=== PATIENT | female | born 1945 | race Caucasian/White ===

== ENCOUNTER 2019-11-25 05:13 | Inpatient (IN) ==
[2019-11-25] MEDS ORDERED: KETOROLAC 30 MG/ML VIAL IV ONE (05:46)
--- NOTE | 2019-11-25 05:54 | Emergency Department Note ---
Impression & Plan Atypical chest pain, Mass of right lung, Infiltrate of left lung present on chest x-ray ED Provider Note NAME: NADEEM BROWNING AGE: 74 SEX: F ARRIVES VIA: Walk-In INFORMANT: Patient ED PROVIDER(S): Isabel Cross DO CHIEF COMPLAINT: Right-sided chest pain PLAN: Disposition: Admitted to the [facility] service Condition: Good MEDICAL DECISION MAKING: This is a 74-year-old female patient presents emergency department with a right- sided chest pain on 2 different occasions that woke her from sleep. The patient had a normal EKG and negative troponin. She had a normal-appearing chest x-ray but had a CT scan of the chest with a right-sided pleural-based mass and a significant left-sided infiltrative process. The patient has a remote history of tobacco abuse and a very slight cough but no other significant risk factors for COVID 19. [facility] for [facility]. Triage Nursing notes reviewed and agree them. Prior medical records reviewed Vital Signs: reviewed and were unremarkable Differential diagnosis: Malignancy of the lung, pulmonary embolism, COVID-19, pneumonia, cardiac ischemia, pleurisy, costochondritis, GERD, DC, pneumothorax ER treatment provided: IV Toradol IV Benadryl IV Solu-Medrol IV Zofran Diagnostics interpreted by me: ECG: Normal sinus rhythm at a rate of 83 with PACs. There is no obvious ischemia or ST segment elevation. Cardiac Monitoring: Normal sinus rhythm Laboratory studies: See below Imaging studies: XR chest 1V portable-as per radiology HISTORY: 74 years-old Female Chest Pain acute atypical chest pain COMPARISON: Chest and rib radiographs 11/21/2017 TECHNIQUE: Portable AP view of the chest FINDINGS: Suggested emphysema. Chronic interstitial coarsening compatible with fibrosis. No pneumothorax, pleural effusion or overt pulmonary edema. Unchanged left basilar opacity suggestive of scarring. No lobar airspace consolidation typical for pneumonia. Bones appear grossly intact. Mild convex left curvature of the midthoracic spine. IMPRESSION: No acute process. CT scan of the chest-as per radiology FINDINGS: The thoracic aorta shows mild arthritic change. No evidence for aneurysm or dissection. The pulmonary vasculature enhances appropriately. There are no filling defects. There is a pleural-based mass versus focus of consolidation peripheral aspect right upper lobe. This is best seen transaxial image 67. Measurements are 2.5 x 1.8 cm. Lungs otherwise show patchy parenchymal infiltrates involving the lingula, as well as posterior aspect of the right lower lobe There is underlying emphysematous change. There is pleural thickening over the apical regions bilaterally. There are several calcified as well as noncalcified mediastinal and/or hilar nodes. IMPRESSION: 1. No evidence for pulmonary embolus. 2. Moderate emphysematous change. 3. Patchy parenchymal infiltrates involving the lingula, left upper lobe, and to a lesser extent superior segment right upper lobe. 4. Pleural base mass versus focus of consolidative infiltrative change peripheral aspect right upper lobe. 5. This measures 2.5 x 1.8 cm. 6. Diagnostic considerations must include neoplasm versus a consolidative infiltrative process HPI: 74/F arrives for evaluation of right-sided chest pain. This is a 74-year-old female patient who describes waking at 4 AM with fairly significant right-sided chest pain. The pain has since lessened but is still present. She also noted some sweaty feet at the time. The patient states that she had a similar episode happened 2 days ago that woke her from sleep but it only lasted for approximately 10 minutes. The patient thought that the symptoms were muscle related. ROS: See above HPI for pertinent positives & negatives. A total of 10 systems reviewed and were otherwise negative. PAST MEDICAL HISTORY:See Below PAST SURGICAL HISTORY:Trigger finger surgery FAMILY HISTORY:See Below SOCIAL HISTORY:See Below HOME MEDICATIONS:See list ALLERGIES:See list VITALS:See Below PHYSICAL EXAMINATION: HEENT: Head - normocephalic and atraumatic Pupils are equal, round, and reactive to light. Extraocular eye muscles are intact, and sclera are anicteric. Nose - moist nasal mucosa without discharge. Mouth - moist buccal mucosa. Oropharynx is nonerythematous and there is no tonsillar exudate or edema noted. Neck: Supple; no thyromegaly, no cervical lymphadenopathy Chest: The patient has no reproducible discomfort with palpation over the right anterior chest wall and no skin lesions noted. Heart: Regular rate and rhythm. There is a normal S1 and S2 with no murmurs, clicks, or gallops appreciated. Lungs: Clear to auscultation bilaterally with no wheezes, rales, or rhonchi. Abdomen: Soft, completely nontender, nondistended, with good bowel sounds. There are no palpable pulsatile masses or hepatosplenomegaly. There is no guarding, rigidity, or rebound noted. Extremities: No evidence of cyanosis, clubbing, or edema. There are easily palpable peripheral pulses. Skin: warm and dry with good turgor and no rashes. ED COURSE: Times/Reassessments: 0530: The patient was evaluated in room C 11. A complete history and physical was performed. An order was placed for continuous cardiac monitoring. The patient remained in a normal sinus rhythm at a rate of 88. An IV lock was initiated and labs were drawn as above. Previous electronic medical records were reviewed. A twelve-lead EKG was obtained as described above. The patient was medicated with 30 mg of IV Toradol for the pain in the right side of her chest. The patient had chest x-ray which was fairly unremarkable. She had moderate leaf of the discomfort with the right-sided chest pain. Her d-dimer was elevated and she needed to go for CT scan of the chest rule out PE. The patient has a known shellfish allergy. She was premedicated with IV Solu-Medrol, IV Benadryl, and IV Zofran. I reviewed the results of the CT scan with the patient. I discussed the case with the [facility] hospitalist. They will evaluate for further management. Isabel Cross DO Past Med/Surg History Medical History (Updated 11/25/19 @ 16:50 by Isabel Cross DO) Dyslipidemia GERD (gastroesophageal reflux disease) Urge incontinence Surgical History (Updated 11/25/19 @ 09:21 by Anna Bello PA-C) H/O colonoscopy 09/05/2005; benign biopsy; Dr Cummings Hx of tonsillectomy Family History (Updated 11/25/19 @ 09:22 by Anna Bello PA-C) Father FH: Parkinson's disease Sister Cancer multiple myeloma Coronary heart disease Social History (Updated 11/25/19 @ 09:23 by Anna Bello PA-C) Preferred Language: Egyptian Communication Ability: Effective Backup Engineer Required: No Beliefs That Will Affect Care: None marital status: Current Living Situation: Spouse Other Information That Helps Us Care for You: No Feels Safe at Home: Yes Safety Concerns: Feels Safe At This Time Smoking Status: Former smoker Do You Dip or Chew Tobacco: No ; Smoking End Date: Smoked 1ppd x 40 years; Quit 2001 ; Second Hand Exposure: No ; Tobacco Cessation Education Requested by Patient: No Hx Alcohol Use: Yes Alcohol type: wine Hx Substance Use: No Allergies Allergies Allergy/AdvReac Type Severity Reaction Status Date / Time iodine Allergy Severe rash Unverified 11/25/19 06:03 shellfish derived Allergy Severe violently Unverified 11/25/19 06:03 ill Home Meds Home Medications Medication Instructions Recorded Confirmed CHLOROPHYLL-THYMOL (CHLOROPHYLL) 1 tab PO DAILY #0 11/21/17 11/25/19 Menaquinone-7 (Vitamin K2) 1 cap PO DAILY #0 11/21/17 11/25/19 Ocuvite Preservision 1 tab PO DAILY #0 tab 11/21/17 11/25/19 Adrenal Stess Complex 2 tabs PO DAILY 11/25/19 11/25/19 Lactobacillus acidophilus 0 mg PO DAILY 11/25/19 11/25/19 Oil Of Oregano 1 tab PO DIRECTED 11/25/19 11/25/19 ascorbic acid (vitamin C) 500 mg PO BID 11/25/19 11/25/19 atorvastatin 10 mg PO HS 11/25/19 11/25/19 biotin 5,000 mcg SUBLINGUAL DAILY 11/25/19 11/25/19 calcium carbonate [Calcium 600] 600 mg PO DAILY 11/25/19 11/25/19 cholecalciferol (vitamin D3) 25 mcg PO DAILY 11/25/19 11/25/19 coQ10 (ubiquinol) 100 mg PO BID 11/25/19 11/25/19 garlic 0 mg PO DAILY 11/25/19 11/25/19 omega 1-evb-zpa-fish oil [Fish Oil] 1 cap PO DAILY 11/25/19 11/25/19 omeprazole 20 mg PO DAILY 11/25/19 11/25/19 oxybutynin chloride 5 mg PO DAILY 11/25/19 11/25/19 Results & Data (ED) Vital Signs Vital Signs - 24 hr 11/25/19 05:15 11/25/19 05:16 11/25/19 05:42 Temperature 36.6 C Temperature Source Oral Pulse Rate 88 Pulse Rate from SpO2 Sensor Respiratory Rate 18 Respiratory Depth Normal Blood Pressure 169/75 H Blood Pressure Mean 106 Pulse Oximetry 98 97 97 Oxygen Delivery Method Room Air Room Air Room Air Sepsis Recent Fever Within 48 Hours No Sepsis New/Unexplained Change in Mental Status No Sepsis Action Taken by Nursing No Action Required 11/25/19 06:30 11/25/19 07:00 11/25/19 07:35 Temperature Temperature Source Pulse Rate 71 68 Pulse Rate from SpO2 Sensor 69 68 88 Respiratory Rate 12 13 14 Respiratory Depth Blood Pressure 139/76 134/78 168/87 H Blood Pressure Mean 104 96 96 Pulse Oximetry 97 97 98 Oxygen Delivery Method Room Air Room Air Room Air Sepsis Recent Fever Within 48 Hours Sepsis New/Unexplained Change in Mental Status Sepsis Action Taken by Nursing 11/25/19 08:00 11/25/19 08:30 Temperature Temperature Source Pulse Rate Pulse Rate from SpO2 Sensor 80 84 Respiratory Rate Respiratory Depth Blood Pressure 138/79 154/83 H Blood Pressure Mean 105 112 Pulse Oximetry 96 98 Oxygen Delivery Method Room Air Sepsis Recent Fever Within 48 Hours Sepsis New/Unexplained Change in Mental Status Sepsis Action Taken by Nursing Laboratory Data Result diagrams: 11/25/19 05:32 11/25/19 05:32 Lab Results 11/25/19 11/25/19 11/25/19 Range/Units 05:32 05:32 05:32 WBC 6.75 (4.8-10.8) K/uL RBC 4.60 (4.2-5.4) M/uL Hgb 14.1 (12.0-16.0) g/dL Hct 40.9 (37-47) % MCV 88.9 (80-100) fL MCH 30.7 (25-34) pg MCHC 34.5 (32-36) g/dL RDW Std Deviation 45.2 (36.4-46.3) fL RDW Coeff of Brett 13.9 (11.5-14.5) % Plt Count 260 (130-400) K/uL MPV 11.7 H (7.4-10.4) fL Immature Gran % (Auto) 0.3 % Neut % (Auto) 55.6 % Lymph % (Auto) 31.1 % [facility] % (Auto) 11.0 % Eos % (Auto) 1.6 % Baso % (Auto) 0.4 % Neut # (Auto) 3.75 (1.4-6.5) K/uL Lymph # (Auto) 2.10 (1.2-3.4) K/uL [facility] # (Auto) 0.74 H (0.11-0.59) K/uL Eos # (Auto) 0.11 (0-0.5) K/uL Baso # (Auto) 0.03 (0-0.2) K/uL Immature Gran # (Auto) 0.02 (0.00-0.02) K/uL RBC Morphology Unremarkable PT 10.3 (9.0-12.0) Seconds INR 1.0 (0.9-1.1) APTT 30.9 (21.0-31.0) Seconds PTT Ratio 1.1 D-Dimer (0-500) ug/L FEU Sodium 144 (136-145) mmol/L Potassium 4.0 (3.5-5.1) mmol/L Chloride 108 H (98-107) mmol/L Carbon Dioxide 29 (21-32) mmol/L Anion Gap 7.0 (3-11) BUN 13 (7-18) mg/dl Creatinine 0.75 (0.6-1.2) mg/dl Est Cr Clr Drug Dosing 54.4 ml/min Est GFR ( Amer) 91.0 Est GFR (Non-Af Amer) 78.5 BUN/Creatinine Ratio 17.0 (10-20) Glucose 103 H (70-99) mg/dl Calcium 9.1 (8.5-10.1) mg/dl Total Bilirubin 0.3 (0.2-1) mg/dl AST 15 (15-37) U/L ALT 24 (12-78) U/L Alkaline Phosphatase 95 (45-117) U/L Troponin I < 0.015 (0-0.045) ng/ml Total Protein 7.2 (6.4-8.2) gm/dl Albumin 3.5 (3.4-5.0) gm/dl Globulin 3.7 (2.5-4.0) gm/dl Albumin/Globulin Ratio 0.9 (0.9-2) Lipase 140 (73-393) U/L 11/25/19 Range/Units 05:32 WBC (4.8-10.8) K/uL RBC (4.2-5.4) M/uL Hgb (12.0-16.0) g/dL Hct (37-47) % MCV (80-100) fL MCH (25-34) pg MCHC (32-36) g/dL RDW Std Deviation (36.4-46.3) fL RDW Coeff of Brett (11.5-14.5) % Plt Count (130-400) K/uL MPV (7.4-10.4) fL Immature Gran % (Auto) % Neut % (Auto) % Lymph % (Auto) % [facility] % (Auto) % Eos % (Auto) % Baso % (Auto) % Neut # (Auto) (1.4-6.5) K/uL Lymph # (Auto) (1.2-3.4) K/uL [facility] [place] # (Auto) (0.11-0.59) K/uL Eos # (Auto) (0-0.5) K/uL Baso # (Auto) (0-0.2) K/uL Immature Gran # (Auto) (0.00-0.02) K/uL RBC Morphology PT (9.0-12.0) Seconds INR (0.9-1.1) APTT (21.0-31.0) Seconds PTT Ratio D-Dimer 2400 H* (0-500) ug/L FEU Sodium (136-145) mmol/L Potassium (3.5-5.1) mmol/L Chloride (98-107) mmol/L Carbon Dioxide (21-32) mmol/L Anion Gap (3-11) BUN (7-18) mg/dl Creatinine (0.6-1.2) mg/dl Est Cr Clr Drug Dosing ml/min Est GFR ( Amer) Est GFR (Non-Af Amer) BUN/Creatinine Ratio (10-20) Glucose (70-99) mg/dl Calcium (8.5-10.1) mg/dl Total Bilirubin (0.2-1) mg/dl AST (15-37) U/L ALT (12-78) U/L Alkaline Phosphatase (45-117) U/L Troponin I (0-0.045) ng/ml Total Protein (6.4-8.2) gm/dl Albumin (3.4-5.0) gm/dl Globulin (2.5-4.0) gm/dl Albumin/Globulin Ratio (0.9-2) Lipase (73-393) U/L Administered Medications Enoxaparin Sodium (Lovenox) 40 mg SQ Q24H JAYSON Stop: 12/25/19 13:59 Last Admin: 11/25/19 14:25 Dose: 40 mg Documented by: [id number] Ceftriaxone Sodium 1,000 mg/ (Dextrose) 50 mls @ 100 mls/hr IV Q24H JAYSON; Protocol Stop: 12/02/19 09:14 Last Infusion: 11/25/19 13:23 Dose: 0 mls/hr Documented by: [id number] Admin: 11/25/19 12:53 Dose: 100 mls/hr Documented by: [id number] Azithromycin 500 mg/ Dextrose 255 mls @ 125 mls/hr IV DAILY JAYSON Stop: 12/02/19 09:14 Last Infusion: 11/25/19 14:45 Dose: 0 mls/hr Documented by: [id number] Admin: 11/25/19 13:23 Dose: 125 mls/hr Documented by: [id number] Discontinued Medications Diphenhydramine HCl (Benadryl) 50 mg IV NOW STA Stop: 11/25/19 07:07 Last Admin: 11/25/19 07:15 Dose: 50 mg Documented by: [id number] Ioversol (Optiray 320 125ml) 118 ml IV ONCE PRN PRN Reason: Interaction Checking Stop: 11/29/19 07:28 Last Admin: 11/25/19 07:30 Dose: 118 ml Documented by: [id number] Ketorolac Tromethamine (Toradol) 30 mg IV NOW ONE Stop: 11/25/19 05:47 Last Admin: 11/25/19 05:52 Dose: 30 mg Documented by: [id number] Methylprednisolone (Solumedrol) 125 mg IV NOW STA Stop: 11/25/19 07:09 Last Admin: 11/25/19 07:15 Dose: 125 mg Documented by: [id number] Ondansetron HCl (Zofran) 4 mg IV NOW STA Stop: 11/25/19 07:07 Last Admin: 11/25/19 07:15 Dose: 4 mg Documented by: [id number] Discharge Plan Visit Data *Final* Discharge Date/Time: 11/25/19 11:14 Chief Complaint: Chest Pain Stated Complaint: right side chest pain ED Provider: Isabel Cross Discharge Problem: Atypical chest pain, Mass of right lung, Infiltrate of left lung present on chest x-ray Patient Disposition: Admitted As Inpatient Discharge Instructions Interventions: ED Discharge Assessment Last Done: 11/25/19 11:14
[2019-11-25 06:01] LABS: Alanine Aminotransferase 24 U/L (12-78); Albumin Level 3.5 gm/dl (3.4-5.0); Aspartate Aminotransferase 15 U/L (15-37); Blood Urea Nitrogen 13 mg/dl (7-18); Calcium 9.1 mg/dl (8.5-10.1); Carbon Dioxide 29 mmol/L (21-32); Chloride 108 mmol/L (98-107); Creatinine Clr Calc Pharmacy 54.4 ml/min; Est GFR (Non-African American) 78.5; Glucose 103 mg/dl (70-99); Lipase 140 U/L (73-393); Sodium 144 mmol/L (136-145)
[2019-11-25 06:04] LABS: Partial Thromboplastin Ratio 1.1; Partial Thromboplastin Time 30.9 Seconds (21.0-31.0); Prothrombin Time 10.3 Seconds (9.0-12.0)
[2019-11-25 06:06] LABS: Albumin Globulin Ratio 0.9 (0.9-2); Alkaline Phosphatase 95 U/L (45-117); Bilirubin,Total 0.3 mg/dl (0.2-1); Globulin 3.7 gm/dl (2.5-4.0); Total Protein 7.2 gm/dl (6.4-8.2); Troponin I < 0.015 ng/ml (0-0.045)
--- NOTE | 2019-11-25 06:31 | XRay Report ---
XR chest 1V portable HISTORY: 74 years-old Female Chest Pain acute atypical chest pain COMPARISON: Chest and rib radiographs 11/21/2017 TECHNIQUE: Portable AP view of the chest FINDINGS: Suggested emphysema. Chronic interstitial coarsening compatible with fibrosis. No pneumothorax, pleur al effusion or overt pulmonary edema. Unchanged left basilar opacity suggestive of scarring. No lobar airspace consolidation typical for pneumonia. Bones appear grossly intact. Mild convex left curvatur e of the midthoracic spine. IMPRESSION: No acute process. ACT 112: Negative or not required by law. The above report was generated using voice recognition software. It may contain grammatical, syntax o r spelling errors. Electronically signed by: Ace Hoskins M.D. 11/25/2019 6:29 AM
[2019-11-25 06:36] LABS: Basophils # (auto) 0.03 K/uL (0-0.2); Basophils % (auto) 0.4 %; Eosinophils # (auto) 0.11 K/uL (0-0.5); Eosinophils % (auto) 1.6 %; Hematocrit (blood only) 40.9 % (37-47); Hemoglobin 14.1 g/dL (12.0-16.0); Immature Granulocytes # (auto) 0.02 K/uL (0.00-0.02); Immature Granulocytes % (auto) 0.3 %; Lymphocytes % (auto) 31.1 %; Mean Corpuscular Hemoglobin 30.7 pg (25-34); Mean Corpuscular Hgb Conc 34.5 g/dL (32-36); Mean Corpuscular Volume 88.9 fL (80-100); Mean Platelet Volume 11.7 fL (7.4-10.4); Monocytes # (auto) 0.74 K/uL (0.11-0.59); Neutrophils # (auto) 3.75 K/uL (1.4-6.5); Neutrophils % (auto) 55.6 %; Platelet Count 260 K/uL (130-400); RBC Morphology Unremarkable; RDW Coefficient of Variation 13.9 % (11.5-14.5); RDW Standard Deviation 45.2 fL (36.4-46.3); White Blood Count 6.75 K/uL (4.8-10.8)
[2019-11-25 06:57] LABS: D Dimer 2400 ug/L FEU (0-500)
[2019-11-25] MEDS ORDERED: ONDANSETRON INJ 2 MG/ML 2 ML VIAL IV STA (07:06)
[2019-11-25] MEDS ORDERED: DiphenhydrAMINE HCL 50 MG/ML VIAL IV STA (07:06)
[2019-11-25] MEDS ORDERED: methylPREDNISolone 125 MG/2 ML VIAL IV STA (07:08)
[2019-11-25] MEDS ORDERED: OPTIRAY 320 125ml IV PRN (07:29)
--- NOTE | 2019-11-25 07:49 | CT Scan Report ---
CT angio chest PE protocol CT DOSE: 241.87 mGy.cm HISTORY: Chest pain. Dyspnea. PE TECHNIQUE: Multiaxial CT images of the chest were performed following the intravenous administration of contrast to evaluate the pulmonary arteries. Maximal intensity projection images were also obtaine d. A dose lowering technique was utilized adhering to the principles of ALARA. COMPARISON STUDY: None. FINDINGS: The thoracic aorta shows mild arthritic change. No evidence for aneurysm or dissection. The pulmonary vasculature enhances appropriately. There are no filling defects. There is a pleural-based mass versus focus of consolidation peripheral aspect right upper lobe. This is best seen transaxial image 67. Measurements are 2.5 x 1.8 cm. Lungs otherwise show patchy parenchymal infiltrates involving the lingula, as well as posterior aspec t of the right lower lobe There is underlying emphysematous change. There is pleural thickening over the apical regions bilater ally. There are several calcified as well as noncalcified mediastinal and/or hilar nodes. IMPRESSION: 1. No evidence for pulmonary embolus. 2. Moderate emphysematous change. 3. Patchy parenchymal infiltrates involving the lingula, left upper lobe, and to a lesser extent supe rior segment right upper lobe. 4. Pleural base mass versus focus of consolidative infiltrative change peripheral aspect right upper lobe. 5. This measures 2.5 x 1.8 cm. 6. Diagnostic considerations must include neoplasm versus a consolidative infiltrative process ACT 112: Negative or not required by law. The above report was generated using voice recognition software. It may contain grammatical, syntax or spelling errors. Electronically signed by: Cliff Morelos M.D. 11/25/2019 7:47 AM
[2019-11-25] MEDS ORDERED: AZITHROMYCIN 500 MG in DEXTROSE 5% 250 ML IV SCH (09:15)
--- NOTE | 2019-11-25 09:24 | History & Physical Report ---
Date of Service November 25, 2019 Assessment & Plan (1) Chest pain: (2) Abnormal CT scan, chest: (3) Dyslipidemia: Pt was seen by Dr Gross. Anna Cheung PA-C, assisted with chart review, PMH, Past surgical history, med rec HPI, ROS, Exam, Assessment and Plan per Dr Gross. See Addendum History of Present Illness Primary Care Provider: Laura Barakat, DO Allergies Allergy/AdvReac Type Severity Reaction Status Date / Time iodine Allergy Severe rash Unverified 11/25/19 06:03 shellfish derived Allergy Severe violently Unverified 11/25/19 06:03 ill Home Medications Home Medications Medication Instructions Recorded Confirmed Type CHLOROPHYLL-THYMOL (CHLOROPHYLL) 1 tab PO DAILY #0 11/21/17 11/25/19 History Menaquinone-7 (Vitamin K2) 1 cap PO DAILY #0 11/21/17 11/25/19 History Ocuvite Preservision 1 tab PO DAILY #0 tab 11/21/17 11/25/19 History Adrenal Stess Complex 2 tabs PO DAILY 11/25/19 11/25/19 History Lactobacillus acidophilus 0 mg PO DAILY 11/25/19 11/25/19 History Oil Of Oregano 1 tab PO DIRECTED 11/25/19 11/25/19 History ascorbic acid (vitamin C) 500 mg PO BID 11/25/19 11/25/19 History atorvastatin 10 mg PO HS 11/25/19 11/25/19 History biotin 5,000 mcg SUBLINGUAL DAILY 11/25/19 11/25/19 History calcium carbonate [Calcium 600] 600 mg PO DAILY 11/25/19 11/25/19 History cholecalciferol (vitamin D3) 25 mcg PO DAILY 11/25/19 11/25/19 History coQ10 (ubiquinol) 100 mg PO BID 11/25/19 11/25/19 History garlic 0 mg PO DAILY 11/25/19 11/25/19 History omega 5-wnl-gxm-fish oil [Fish Oil] 1 cap PO DAILY 11/25/19 11/25/19 History omeprazole 20 mg PO DAILY 11/25/19 11/25/19 History oxybutynin chloride 5 mg PO DAILY 11/25/19 11/25/19 History Past Med/Surg History Medical History (Updated 11/25/19 @ 09:26 by Anna Bello PA-C) Dyslipidemia GERD (gastroesophageal reflux disease) Urge incontinence Surgical History (Updated 11/25/19 @ 09:21 by Anna Bello PA-C) H/O colonoscopy 09/05/2005; benign biopsy; Dr Cummings Hx of tonsillectomy Family History (Updated 11/25/19 @ 09:22 by Anna Bello PA-C) Father FH: Parkinson's disease Sister Cancer multiple myeloma Coronary heart disease Social History (Updated 11/25/19 @ 09:23 by Anna Bello PA-C) Preferred Language: Vietnamese Communication Ability: Effective Catering Barista Required: No Beliefs That Will Affect Care: None marital status: Current Living Situation: Spouse Other Information That Helps Us Care for You: No Feels Safe at Home: Yes Safety Concerns: Feels Safe At This Time Smoking Status: Former smoker Do You Dip or Chew Tobacco: No ; Smoking End Date: Smoked 1ppd x 40 years; Quit 2001 ; Second Hand Exposure: No ; Tobacco Cessation Education Requested by Patient: No Hx Alcohol Use: Yes Alcohol type: wine Hx Substance Use: No Results & Data Results & Data ([facility]) Vital Signs (Past 12 Hours) Vital Signs Temp Pulse Resp BP Pulse Ox 11/25/19 07:35 14 168/87 H 98 11/25/19 07:00 68 13 134/78 97 11/25/19 06:30 71 12 139/76 97 11/25/19 05:42 97 11/25/19 05:16 36.6 C 88 18 169/75 H 97 11/25/19 05:15 98 Laboratory Results Short CBC 11/25/19 Range/Units 05:32 WBC 6.75 (4.8-10.8) K/uL Hgb 14.1 (12.0-16.0) g/dL Hct 40.9 (37-47) % Plt Count 260 (130-400) K/uL BMP 11/25/19 05:32 Sodium 144 Potassium 4.0 Chloride 108 H Carbon Dioxide 29 BUN 13 Creatinine 0.75 Glucose 103 H Calcium 9.1 Cardiac Enzymes 11/25/19 Range/Units 05:32 Troponin I < 0.015 (0-0.045) ng/ml Liver Function 11/25/19 Range/Units 05:32 Total Bilirubin 0.3 (0.2-1) mg/dl AST 15 (15-37) U/L ALT 24 (12-78) U/L Alkaline Phosphatase 95 (45-117) U/L Albumin 3.5 (3.4-5.0) gm/dl Diagnostic Findings CTA CHEST: IMPRESSION: 1. No evidence for pulmonary embolus. 2. Moderate emphysematous change. 3. Patchy parenchymal infiltrates involving the lingula, left upper lobe, and to a lesser extent superior segment right upper lobe. 4. Pleural base mass versus focus of consolidative infiltrative change peripheral aspect right upper lobe. 5. This measures 2.5 x 1.8 cm. 6. Diagnostic considerations must include neoplasm versus a consolidative infiltrative process CXR: IMPRESSION: No acute process. ECG Rate (beats per minute): 83 Rhythm: sinus rhythm Code Status & VTE Plan VTE Prophylaxis Plan VTE Prophylaxis will be ordered: Yes Supervising Physician Co-Signing Physician Notes History and physical exam performed by me. 74yo F with history of GERD who presented with right sided chest pain. Patient reported that initial episode was 2 days ago on waking up, described as feeling like a "muscle pull", not referred, not worsened by movement/deep breathing, resolved after sometime. Then she had another episode similar but worse this morning on waking up necessitating presentation to ER. Denied any fevers, chills, nausea, vomiting Reports mild dry cough, described as on and off which patient believes is usually due to allergies/summer season, unchanged from before. Denied any shortness of breath, dyspnea on exertion, palpitation, dizziness, orthopnea, PND, wheezing. Reports she walks up to 2miles sometimes daily. Denied any anorexia, weight loss Denied any abdominal pain. Had diarrhea some weeks ago but none currently. All ROS - As documented above Former smoker. Smoked about 1ppd for about 35yrs, quit in the 90s. Drinks 1-2 glasses of wine daily. Denied illicit drug use Lives with at home. No recent travels or sick contacts or contact with anyone with COVID19. Family hx of myeloma and 'heart attack' in sister in her 70s Surgical hx - for trigger finger. General: Well nourished, well hydrated , average body habitus, no acute distress and not ill appearing Eyes: PERRL, conjunctivae normal, not pale, anicteric sclerae, EOM intact bilaterally ENMT: External ear and nose normal, oropharynx normal Neck: Normal visual inspection, no tracheal deviation, no swelling noted Respiratory: Normal respiratory effort, no respiratory distress, lungs clear to auscultation, no crackles and no wheezes Cardiovascular: Pulse is RRR. Heart Sounds: normal S1 and normal S2; no pedal edema Chest (Breasts): Normal inspection of chest, no chest wall tenderness Gastrointestinal (Abdomen): Abdomen is not distended, soft, non-tender to palpation, no guarding, no palpable hepatosplenomegaly, normal bowel sounds Musculoskeletal: No cyanosis or clubbing, all extremities motor strength 5/5 Skin: No rash noted on gross inspection, No ulcers noted Neurologic: Alert and oriented x 3, No focal weakness, sensation grossly intact Psychiatric: Alert and oriented x 3, euthymic affect Labs are only remarkable for elevated D-Dimer of 2400 CXR suggested emphysema, unchanged left basilar opacity suggestive of scarring without acute process CT findings: 1. No evidence for pulmonary embolus. 2. Moderate emphysematous change. 3. Patchy parenchymal infiltrates involving the lingula, left upper lobe, and to a lesser extent superior segment right upper lobe. 4. Pleural base mass versus focus of consolidative infiltrative change peripheral aspect right upper lobe. 5. This measures 2.5 x 1.8 cm. 6. Diagnostic considerations must include neoplasm versus a consolidative infiltrative process -Atypical Chest pain Chest pain could be musculoskeletal ACS unlikely based on history, trop, EKG. CT findings as noted above Low suspicion for COVID 19 based on hx but with imaging findings will rule this out With report of chest pain, cough and infiltrate, will continue antibiotics for Community Acquired Pneumonia for now. Based on CT chest findings, possible mass, smoking history; patient will need pulm follow up on discharge for further eval, surveillance, possible PFTs as well.
[2019-11-25] MEDS: cefTRIAXone SODIUM 1,000 MG in DEXTROSE 5% 50 ML IV SCH (12:53)
[2019-11-25] MEDS ORDERED: ACETAMINOPHEN 325 MG TAB PO PRN (13:10)
[2019-11-25] MEDS: ENOXAPARIN INJ 40 MG/0.4 ML SYR SQ SCH (14:25)
[2019-11-25] MEDS ORDERED: Nursing to Pharmacy Communication SCH (18:30)
[2019-11-25] MEDS: ASCORBIC ACID 500 MG TAB PO SCH (21:19)
--- NOTE | 2019-11-26 07:12 | Electrocardiogram Report ---
Test Reason : Blood Pressure : / mmHG Vent. Rate : 083 BPM Atrial Rate : 083 BPM P-R Int : 136 ms QRS Dur : 088 ms QT Int : 360 ms P-R-T Axes : 079 038 032 degrees QTc Int : 423 ms Poor data quality, interpretation may be adversely affected Sinus rhythm with Premature atrial complexes Otherwise normal ECG No previous ECGs available Confirmed by Jeff Moore ([id number]) on 11/26/2019 7:11:39 AM Referred By: REFERRED SELF Confirmed By:Jeff Moore
[2019-11-26] MEDS: CHOLECALCIFEROL 1,000 UNITS 25 MCG TAB PO SCH (08:09)
[2019-11-26] MEDS: ASCORBIC ACID 500 MG TAB PO SCH ×2 (08:09→20:56)
[2019-11-26] MEDS: ATORVASTATIN 10 MG TAB PO SCH (08:11)
[2019-11-26] MEDS: PANTOprazole 40 MG TAB PO SCH (08:12)
[2019-11-26] MEDS: OXYBUTYNIN CHLORIDE XL 5 MG TABCR PO SCH (08:12)
[2019-11-26] MEDS: cefTRIAXone SODIUM 1,000 MG in DEXTROSE 5% 50 ML IV SCH (08:20)
[2019-11-26] MEDS ORDERED: CALCIUM CARBONATE 1250MG TAB PO SCH (09:00)
[2019-11-26] MEDS: DOXYCYCLINE HYCLATE 100 MG CAP PO SCH ×2 (09:36→20:56)
[2019-11-26 10:45] LABS: Hematocrit (blood only) 42.7 % (37-47); Hemoglobin 14.2 g/dL (12.0-16.0); Mean Corpuscular Hemoglobin 29.8 pg (25-34); Mean Corpuscular Hgb Conc 33.3 g/dL (32-36); Mean Corpuscular Volume 89.7 fL (80-100); Mean Platelet Volume 11.1 fL (7.4-10.4); Platelet Count 257 K/uL (130-400); RDW Coefficient of Variation 13.7 % (11.5-14.5); RDW Standard Deviation 45.1 fL (36.4-46.3); Red Blood Count 4.76 M/uL (4.2-5.4); White Blood Count 10.72 K/uL (4.8-10.8)
[2019-11-26 11:01] LABS: BUN Creatinine Ratio 20.5 (10-20); Calcium 9.1 mg/dl (8.5-10.1); Creatinine Clr Calc Pharmacy 48.6 ml/min; Est GFR (African American) 79.4; Est GFR (Non-African American) 68.5; Potassium 3.7 mmol/L (3.5-5.1)
--- NOTE | 2019-11-26 14:31 | Hospitalist Progress Note ---
Date of Service November 26, 2019 Assessment & Plan (1) Chest pain: (2) Abnormal CT scan, chest: Chest pain CT showing patchy infiltrates and consolidative changes Possible community acquired pneumonia Will continue antibiotics for now COVID test pending Will need pulm follow up on discharge for further eval and management DVT ppx- lovenox sq Admission and Anticipated Discharge Date Admission Date: November 25, 2019 Subjective Patient seen and examined Reports she has not had any more chest pain Reported pain in the IV arm and nausea when she was getting azithromycin yesterday. No rash, hives, angioedema signs/symptoms. This was changed to doxycycline Denied any fevers, chills Denied any palpitations, cough, shortness of breath today Physical Exam Physical Exam: General: Well nourished, well hydrated , average body habitus, no acute distress and not ill appearing Eyes: PERRL, conjunctivae normal, not pale, anicteric sclerae, EOM intact bilaterally ENMT: External ear and nose normal, oropharynx normal Respiratory: Normal respiratory effort, no respiratory distress, lungs clear to auscultation, no crackles and no wheezes Cardiovascular: Pulse is RRR. S1-2, no pedal edema Chest (Breasts): Normal inspection of chest, no chest wall tenderness Gastrointestinal (Abdomen): Abdomen is not distended, soft, non-tender to palpation, no guarding, no palpable hepatosplenomegaly, normal bowel sounds Musculoskeletal: No cyanosis or clubbing, all extremities motor strength 5/5 Skin: No rash noted on gross inspection, No ulcers noted Neurologic: Alert and oriented x 3, No focal weakness, sensation grossly intact Psychiatric: Euthymic affect Results & Data Results & Data ([facility]) Vital Signs (Past 12 Hours) Vital Signs Temp Pulse Pulse Resp BP Pulse Ox 11/26/19 07:33 91 H 11/26/19 05:00 36.5 C 100 H 14 112/66 95 11/26/19 01:15 97 H 11/26/19 00:00 36.6 C 82 14 127/70 97 11/25/19 21:23 36.2 C L 91 H 17 114/68 95 Laboratory Results Laboratory Results - last 24 hr 11/26/19 11/26/19 11/26/19 10:15 10:15 10:15 WBC 10.72 RBC 4.76 Hgb 14.2 Hct 42.7 MCV 89.7 MCH 29.8 MCHC 33.3 RDW Std Deviation 45.1 RDW Coeff of Brett 13.7 Plt Count 257 MPV 11.1 H Sodium 141 Potassium 3.7 Chloride 107 Carbon Dioxide 29 Anion Gap 6.0 BUN 17 Creatinine 0.84 Est Cr Clr Drug Dosing 48.6 Est GFR ( Amer) 79.4 Est GFR (Non-Af Amer) 68.5 BUN/Creatinine Ratio 20.5 H Glucose 85 Calcium 9.1 Procalcitonin < 0.05
[2019-11-26] MEDS: ENOXAPARIN INJ 40 MG/0.4 ML SYR SQ SCH (15:27)
[2019-11-27 08:13] LABS: Hematocrit (blood only) 40.8 % (37-47); Hemoglobin 13.4 g/dL (12.0-16.0); Mean Corpuscular Hemoglobin 30.2 pg (25-34); Mean Corpuscular Hgb Conc 32.8 g/dL (32-36); Mean Corpuscular Volume 91.9 fL (80-100); Mean Platelet Volume 10.7 fL (7.4-10.4); Platelet Count 218 K/uL (130-400); RDW Coefficient of Variation 14.1 % (11.5-14.5); Red Blood Count 4.44 M/uL (4.2-5.4); White Blood Count 6.38 K/uL (4.8-10.8)
[2019-11-27 08:45] LABS: BUN Creatinine Ratio 23.2 (10-20); Calcium 8.9 mg/dl (8.5-10.1); Creatinine Clr Calc Pharmacy 51.7 ml/min; Est GFR (African American) 85.5; Est GFR (Non-African American) 73.7; Potassium 4.3 mmol/L (3.5-5.1)
[2019-11-27] MEDS: OXYBUTYNIN CHLORIDE XL 5 MG TABCR PO SCH (09:06)
[2019-11-27] MEDS: ATORVASTATIN 10 MG TAB PO SCH (09:06)
[2019-11-27] MEDS: CHOLECALCIFEROL 1,000 UNITS 25 MCG TAB PO SCH (09:06)
[2019-11-27] MEDS: cefTRIAXone SODIUM 1,000 MG in DEXTROSE 5% 50 ML IV SCH (09:06)
[2019-11-27] MEDS: ASCORBIC ACID 500 MG TAB PO SCH (09:06)
[2019-11-27] MEDS: PANTOprazole 40 MG TAB PO SCH (09:06)
[2019-11-27] MEDS: DOXYCYCLINE HYCLATE 100 MG CAP PO SCH (09:07)
[2019-11-27] MEDS: ENOXAPARIN INJ 40 MG/0.4 ML SYR SQ SCH (12:28)
--- NOTE | 2019-11-27 12:58 | Discharge Summary ---
Date of Service November 27, 2019 Admission HPI Per Admitting Provider 74yo F with history of GERD who presented with right sided chest pain. Patient reported that initial episode was 2 days ago on waking up, described as feeling like a "muscle pull", not referred, not worsened by movement/deep breathing, resolved after sometime. Then she had another episode similar but worse this morning on waking up necessitating presentation to ER. Denied any fevers, chills, nausea, vomiting Reports mild dry cough, described as on and off which patient believes is usually due to allergies/summer season, unchanged from before. Denied any shortness of breath, dyspnea on exertion, palpitation, dizziness, orthopnea, PND, wheezing. Reports she walks up to 2miles sometimes daily. Denied any anorexia, weight loss Denied any abdominal pain. Had diarrhea some weeks ago but none currently. Admission Exam Per Admitting Provider General: Well nourished, well hydrated , average body habitus, no acute distress and not ill appearing Eyes: PERRL, conjunctivae normal, not pale, anicteric sclerae, EOM intact bilaterally ENMT: External ear and nose normal, oropharynx normal Neck: Normal visual inspection, no tracheal deviation, no swelling noted Respiratory: Normal respiratory effort, no respiratory distress, lungs clear to auscultation, no crackles and no wheezes Cardiovascular: Pulse is RRR. Heart Sounds: normal S1 and normal S2; no pedal edema Chest (Breasts): Normal inspection of chest, no chest wall tenderness Gastrointestinal (Abdomen): Abdomen is not distended, soft, non-tender to palpation, no guarding, no palpable hepatosplenomegaly, normal bowel sounds Musculoskeletal: No cyanosis or clubbing, all extremities motor strength 5/5 Skin: No rash noted on gross inspection, No ulcers noted Neurologic: Alert and oriented x 3, No focal weakness, sensation grossly intact Psychiatric: Alert and oriented x 3, euthymic affect Principal Diagnosis Chest pain Possible pneumonia Discharge Exam General: Well nourished, well hydrated , average body habitus, no acute distress and not ill appearing Eyes: PERRL, conjunctivae normal, not pale, anicteric sclerae, EOM intact bilaterally Respiratory: Normal respiratory effort, no respiratory distress, lungs clear to auscultation, no crackles and no wheezes Cardiovascular: Pulse is RRR. S1-2, no pedal edema Chest (Breasts): Normal inspection of chest, no chest wall tenderness Gastrointestinal (Abdomen): Abdomen is not distended, soft, non-tender to palpation, no guarding, no palpable hepatosplenomegaly, normal bowel sounds Musculoskeletal: No cyanosis or clubbing, all extremities motor strength 5/5 Skin: No rash noted on gross inspection, No ulcers noted Neurologic: Alert and oriented x 3, No focal weakness, sensation grossly intact Discharge Data Allergies Allergy/AdvReac Type Severity Reaction Status Date / Time iodine Allergy Severe rash Unverified 11/25/19 06:03 shellfish derived Allergy Severe violently Unverified 11/25/19 06:03 ill Consultations 11/25/19 08:20 ED Decision to Admit Stat 11/25/19 12:35 Consult Case Management - Discharge Planning Routine Ordered Studies 11/25/19 06:59 CT angio chest PE protocol Stat FINDINGS: The thoracic aorta shows mild arthritic change. No evidence for aneurysm or dissection. The pulmonary vasculature enhances appropriately. There are no filling defects. There is a pleural-based mass versus focus of consolidation peripheral aspect right upper lobe. This is best seen transaxial image 67. Measurements are 2.5 x 1.8 cm. Lungs otherwise show patchy parenchymal infiltrates involving the lingula, as well as posterior aspect of the right lower lobe There is underlying emphysematous change. There is pleural thickening over the apical regions bilaterally. There are several calcified as well as noncalcified mediastinal and/or hilar nodes. IMPRESSION: 1. No evidence for pulmonary embolus. 2. Moderate emphysematous change. 3. Patchy parenchymal infiltrates involving the lingula, left upper lobe, and to a lesser extent superior segment right upper lobe. 4. Pleural base mass versus focus of consolidative infiltrative change peripheral aspect right upper lobe. 5. This measures 2.5 x 1.8 cm. 6. Diagnostic considerations must include neoplasm versus a consolidative infiltrative process Hospital Course (1) Chest pain: (2) Abnormal CT scan, chest: Chest pain, resolved CT showing patchy infiltrates and consolidative changes Possible community acquired pneumonia Treated with iv antibiotics Discharge on augmentin 875 po bid to complete 5 days of therapy COVID test pending. Educated patient on home isolation Will call patient with result Will need pulm follow up on discharge for further eval and management. Total Time Total Time Spent Total Time Spent (In Minutes): 25 Total Time Includes: Examination of the Patient, Discharge Planning and Medication Reconciliation Discharge Plan Discharge Items Patient Disposition: Home - Self-Care Reason For Visit: Chest pain Discharge Diagnosis: Chest pain Activity: Resume your previous activity Non-emergency contact: Primary Care Provider and [facility] Call non-emergency contact if: you have any medication questions and your symptoms worsen Follow-up/Referrals: Laura Barakat, [Primary Care Provider] - Diet: Heart Healthy Addtl Attending Provider Instructions: Mrs Randall. You came to the hospital complaining of chest pain. You were evaluated. CT chest showed some infiltrates and consolidation in your lungs. You were treated with antibiotics for possible pneumonia. Please complete the remaining doses of antibiotics. It is very important that you follow up with a [facility] for further evaluation of these CT scan findings. You were also tested for COVID19 which is still pending. Please adhere to the home isolation instructions as noted until result is out. It was a pleasure taking care of you. Home Isolation COVID-19 Instructions The following information about Home Isolation is from the CDC Website: https://www.cdc.gov/coronavirus/2019-ncov/hcp/viwvoiec-aqbioah-zqmnix.html Stay home except to get medical care People who are mildly ill with COVID-19 are able to isolate at home during their illness. You should restrict activities outside your home, except for getting medical care. Do not go to work, school, or public areas. Avoid using public transportation, ride-sharing, or taxis. Separate yourself from other people and animals in your home People: As much as possible, you should stay in a specific room and away from other people in your home. Also, you should use a separate bathroom, if available. Animals: You should restrict contact with pets and other animals while you are sick with COVID-19, just like you would around other people. Although there have not been reports of pets or other animals becoming sick with COVID-19, it is still recommended that people sick with COVID-19 limit contact with animals until more information is known about the virus. When possible, have another member of your household care for your animals while you are sick. If you are sick with COVID-19, avoid contact with your pet, including petting, snuggling, being kissed or licked, and sharing food. If you must care for your pet or be around animals while you are sick, wash your hands before and after you interact with pets and wear a face mask. Call ahead before visiting your doctor If you have a medical appointment, call the healthcare provider and tell them that you have or may have COVID-19. This will help the healthcare providers office take steps to keep other people from getting infected or exposed. Wear a face mask You should wear a face mask when you are around other people (e.g., sharing a room or vehicle) or pets and before you enter a healthcare providers office. If you are not able to wear a face mask (for example, because it causes trouble breathing), then people who live with you should not stay in the same room with you, or they should wear a face mask if they enter your room. Cover your coughs and sneezes Cover your mouth and nose with a tissue when you cough or sneeze. Throw used tissues in a lined trash can. Immediately wash your hands with soap and water for at least 20 seconds or, if soap and water are not available, clean your hands with an alcohol-based hand sat tutor that contains at least 60% alcohol. Clean your hands often Wash your hands often with soap and water for at least 20 seconds, especially after blowing your nose, coughing, or sneezing; going to the bathroom; and before eating or preparing food. If soap and water are not readily available, use an alcohol-based hand sat tutor with at least 60% alcohol, covering all surfaces of your hands and rubbing them together until they feel dry. Soap and water are the best option if hands are visibly dirty. Avoid touching your eyes, nose, and mouth with unwashed hands. Avoid sharing personal household items You should not share dishes, drinking glasses, cups, eating utensils, towels, or bedding with other people or pets in your home. After using these items, they should be washed thoroughly with soap and water. Clean all high-touch surfaces everyday High touch surfaces include counters, tabletops, doorknobs, bathroom fixtures, toilets, phones, keyboards, tablets, and bedside tables. Also, clean any surfaces that may have blood, stool, or body fluids on them. Use a household cleaning spray or wipe, according to the label instructions. Labels contain instructions for safe and effective use of the cleaning product including precautions you should take when applying the product, such as wearing gloves and making sure you have good ventilation during use of the product. Monitor your symptoms Seek prompt medical attention if your illness is worsening (e.g., difficulty breathing).Beforeseeking care, call your healthcare provider and tell them that you have, or are being evaluated for, COVID-19. Put on a face mask before you enter the facility. These steps will help the healthcare providers office to keep other people in the office or waiting room from getting infected or exposed. Ask your healthcare provider to call the local or state health department. Persons who are placed under active monitoring or facilitated self- monitoring should follow instructions provided by their local health department or occupational health professionals, as appropriate. When working with your local health department check their available hours. If you have a medical emergency and need to call 911, notify the dispatch per sonnel that you have, or are being evaluated for COVID-19. If possible, put on a face mask before emergency medical services arrive. Discontinuing home isolation Patients with confirmed COVID-19 should remain under home isolation precautions until the risk of secondary transmission to others is thought to be low. The decision to discontinue home isolation precautions should be made on a [id number] basis, in consultation with healthcare providers and state and local health departments. Pending Studies at Discharge: Yes Studies:: COVID19 test Stand-Alone Forms: [facility], Smoking Cessation Medications and DC Order Prescriptions: New amoxicillin-pot clavulanate [Augmentin] 875-125 mg tablet 1 tab PO BID 2 Days Qty: 4 RF: 0 Continued CHLOROPHYLL-THYMOL (CHLOROPHYLL) 1 TAB tablet 1 tab PO DAILY Qty: 0 RF: 0 Menaquinone-7 (Vitamin K2) 100 MCG capsule 1 cap PO DAILY Qty: 0 RF: 0 Ocuvite Preservision 1 TAB tablet 1 tab PO DAILY Qty: 0 RF: 0 oxybutynin chloride 5 mg Tablet Extended Release 24hr 5 mg PO DAILY RF: 0 atorvastatin 10 mg Tablet 10 mg PO HS RF: 0 ascorbic acid (vitamin C) 500 mg Tablet 500 mg PO BID RF: 0 calcium carbonate [Calcium 600] 600 mg calcium (1,500 mg) Tablet 600 mg PO DAILY RF: 0 garlic 200 mg Tablet 0 mg PO DAILY RF: 0 omega 7-sdx-wcr-fish oil [Fish Oil] 1,000 mg (120 mg-180 mg) Capsule 1 cap PO DAILY RF: 0 biotin 5,000 mcg Tablet, Sublingual 5,000 mcg SUBLINGUAL DAILY RF: 0 cholecalciferol (vitamin D3) 25 mcg (1,000 unit) Tablet 25 mcg PO DAILY RF: 0 Lactobacillus acidophilus Capsule 0 mg PO DAILY RF: 0 Adrenal Stess Complex 2 tabs PO DAILY RF: 0 coQ10 (ubiquinol) 100 mg Capsule 100 mg PO BID RF: 0 Oil Of Oregano 1 tab PO DIRECTED RF: 0 omeprazole 20 mg Tablet,Disintegrat, Delay Rel 20 mg PO DAILY RF: 0 Discharge Orders: Discharge Order (Routine); Ordered 11/27/19 Ordered By: Ping Gross Admission Data Admit Date/Time: 11/25/19 09:10 Attending Provider: Ping Gross I. Admit Provider: Ping Gross I. Primary Care Provider: Laura Barakat Other Providers: Brandon Florez Other Interventions: Discharge Summary Assessment (RN) Last Done: 11/27/19 13:06 DC Date/Time DO NOT enter until pt leaves facility: 11/27/19 14:42
== END 2019-11-27 14:42 | disposition home or self-care (01) | DRG 313 ==
LOC: ED 05:13 → 2W 09:10